=== PATIENT | male | born 1960 | race Caucasian/White ===

== ENCOUNTER → 2016-06-28 | Outpatient (CLI) | payer OTHER | LOC: HEART CORB 06-26 09:28 | DX: I25.5 Ischemic cardiomyopathy (principal); I42.0 Dilated cardiomyopathy ==

== ENCOUNTER 2020-09-26 12:13 | Observation (INO) | payer OTHER ==
[~2020-09-26] VITALS: Ht 182.9 cm; Wt 58.5 kg
[~2020-09-26 12:13] MED LIST: ASPIRIN EC81 MG PO; COREG 3.125M3.125 MG PO; HUMALOG100 UNIT/3 SQ; LANTUS SOL100 UNIT/1 SC; LANTUS100 UNIT/1 SC; LIPITOR TAB 2020 MG PO; METFORMIN HCL1000 MG PO; NEURONTIN 400400 MG PO; PERCOCET 5/325 T1 EA PO; PLAVIX 75 MG TA75 MG PO; PROTONIX40 MG PO; SPIRONOLACTONE25 MG PO; VASOTEC2.5 MG PO
[2020-09-26] MEDS ORDERED: LASIX20 MG PO (16:18)
[2020-09-26] MEDS ORDERED: GLUCOTROL5 MG PO (16:18)
[2020-09-26] MEDS ORDERED: PLAVIX75 MG PO (16:19)
[2020-09-26] MEDS ORDERED: VENTOLIN HFA 66.7 GM INH (16:19)
[2020-09-26] MEDS ORDERED: COZAAR 50MG TAB50 MG PO (16:19)
[2020-09-26] MEDS ORDERED: LINZESS145 MCG PO (16:20)
[2020-09-26] MEDS ORDERED: PROTONIX40 MG PO (16:20)
[2020-09-26] MEDS ORDERED: VITAMIN D21250 MCG PO (16:20)
[2020-09-26] MEDS ORDERED: LOPRESSOR50 MG PO (16:21)
[2020-09-26] MEDS ORDERED: NICOTINE PATCH1 EAC5 TOP (16:24)
[2020-09-26 16:44] LABS: HEMOGLOBIN 11.4 gm/dl (14.0-17.5); RED BLOOD COUNT 4.33 M/UL (4.20-5.50); WHITE BLOOD COUNT 19.2 K/UL (4.5-11.0)
[2020-09-26 17:06] LABS: BUN/CREATININE RATIO 28 (0-10)
[2020-09-27 04:07] LABS: HEMOGLOBIN 12.4 gm/dl (14.0-17.5); RED BLOOD COUNT 4.27 M/UL (4.20-5.50); WHITE BLOOD COUNT 14.6 K/UL (4.5-11.0)
[2020-09-27 04:36] LABS: BUN/CREATININE RATIO 25 (0-10)
[2020-09-27] MEDS ORDERED: LANTUS SOL100 UNIT/1 SQ (10:03)
[2020-09-27 13:11] LABS: HEMOGLOBIN 12.3 gm/dl (14.0-17.5)
--- NOTE | 2020-09-27 18:07 | NUR ---
CRESCENCIO RN ON MED SURG GIVEN REPORT ON PT
[2020-09-28 08:26] LABS: HEMOGLOBIN 11.9 gm/dl (14.0-17.5); RED BLOOD COUNT 4.17 M/UL (4.20-5.50); WHITE BLOOD COUNT 12.4 K/UL (4.5-11.0)
[2020-09-28 08:55] LABS: BUN/CREATININE RATIO 26 (0-10)
[2020-09-28] MEDS ORDERED: CLINDAMYCIN HC150 MG PO (09:29)
[2020-09-28] MEDS ORDERED: TOPROL XL100 MG PO (13:03)
== END 2020-09-28 15:33 | disposition home or self-care (01) ==
LOC: PROG CARE 14:11 → M/S 14:11 → PROG CARE 14:11 → M/S 09-27 19:57
PROVIDERS: Internal Medicine; Internal Medicine Gastroenterology; Physician Assistant; ADMIT Hospitalist
PROC: 0DB78ZX Excision of Stomach, Pylorus, Via Natural or Artificial Opening Endoscopic, Diagnostic (ICD-10-PCS; 2020-09-27)
PROC: 0DB68ZX Excision of Stomach, Via Natural or Artificial Opening Endoscopic, Diagnostic (ICD-10-PCS; principal; 2020-09-27 07:30)
DX: K21.01 Gastro-esophageal reflux disease with esophagitis, with bleeding (principal); K22.11 Ulcer of esophagus with bleeding; K44.9 Diaphragmatic hernia without obstruction or gangrene; K31.9 Disease of stomach and duodenum, unspecified; D62 Acute posthemorrhagic anemia; J44.9 Chronic obstructive pulmonary disease, unspecified; D72.829 Elevated white blood cell count, unspecified; I25.10 Atherosclerotic heart disease of native coronary artery without angina pectoris; E78.5 Hyperlipidemia, unspecified; I11.0 Hypertensive heart disease with heart failure; I50.9 Heart failure, unspecified; I25.5 Ischemic cardiomyopathy; E11.65 Type 2 diabetes mellitus with hyperglycemia; E11.51 Type 2 diabetes mellitus with diabetic peripheral angiopathy without gangrene; F17.210 Nicotine dependence, cigarettes, uncomplicated; I42.8 Other cardiomyopathies; Z20.822 Contact with and (suspected) exposure to COVID-19; Z79.82 Long term (current) use of aspirin; Z79.4 Long term (current) use of insulin; Z79.02 Long term (current) use of antithrombotics/antiplatelets; Z79.899 Other long term (current) drug therapy; Z95.5 Presence of coronary angioplasty implant and graft; Z89.431 Acquired absence of right foot; Z95.810 Presence of automatic (implantable) cardiac defibrillator
CPT/HCPCS: ECHO; 36415; 71045; 80048; 80053; 82550; 82553; 82962; 83036; 84484; 85014; 85018; 85025; 85027; 85610; 86850; 86900; 86901; 92610; 93005; 93306; C9113; G0378; G0379; J2001; J2704; J7040; U0002

== ENCOUNTER 2021-02-23 22:56 | Inpatient (IN) | payer OTHER ==
[~2021-02-23] VITALS: Ht 182.9 cm; Wt 89.4 kg
[~2021-02-23 22:56] MED LIST changes: +CLINDAMYCIN HC150 MG PO; +COZAAR 50MG TAB50 MG PO; +GLUCOTROL5 MG PO; +LASIX20 MG PO; +LINZESS145 MCG PO; +LOPRESSOR50 MG PO; +NICOTINE PATCH1 EAC5 TOP; +PLAVIX75 MG PO; +TOPROL XL100 MG PO; +VITAMIN D21250 MCG PO
[2021-02-24] MEDS ORDERED: HYDROCODON-ACE1 EAC6 PO (01:25)
[2021-02-24] MEDS ORDERED: GABAPENTIN800 MG PO (01:32)
[2021-02-24 03:08] LABS: HEMOGLOBIN 9.1 gm/dl (14.0-17.5); RED BLOOD COUNT 3.13 M/UL (4.20-5.50); WHITE BLOOD COUNT 11.1 K/UL (4.5-11.0)
[2021-02-24] MEDS ORDERED: LANTUS SOL100 UNIT/1 SQ (10:03)
[2021-02-24] MEDS ORDERED: DOXYCYCLINE HY100 MG PO (11:21)
[2021-02-24] MEDS ORDERED: FENOFIBRATE145 MG PO (11:22)
[2021-02-24] MEDS ORDERED: LOPRESSOR 50 MG50 MG PO (11:35)
[2021-02-24] MEDS ORDERED: PROAIR DIGIHAL90 MCG INH (16:19)
[2021-02-25 04:31] LABS: HEMOGLOBIN 8.4 gm/dl (14.0-17.5); RED BLOOD COUNT 2.84 M/UL (4.20-5.50); WHITE BLOOD COUNT 10.5 K/UL (4.5-11.0)
--- NOTE | 2021-02-26 03:05 | NUR ---
PT NOTED TO HAVE BP OF 83/52 HR 86 RR 18 02 98%. ATTEMPTED TO CALL DR. GR WITH NO RESPONSE. PT AWAKENS TO TOUCH.
--- NOTE | 2021-02-26 03:33 | NUR ---
DR. HANNON AWARE OF PTS VITALS. STATES, TO JUST WATCH FOR NOW. LONG PT IS NON SYMPTOMATIC ITS OK.
[2021-02-27 05:59] LABS: HEMOGLOBIN 7.5 gm/dl (14.0-17.5); RED BLOOD COUNT 2.63 M/UL (4.20-5.50); WHITE BLOOD COUNT 10.8 K/UL (4.5-11.0)
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
--- NOTE | 2021-02-28 01:33 | NUR ---
PATIENT HAS BEEN YELLING FOR PEOPLE THAT ARE NOT HERE, WHEN REDIRECTED HE DOES NOT REORIENT AND CONTINUES TO TALK TO AND CALL PEOPLE BY NAME HE IS BECOMING SOMEWHAT AGGRESSIVE MD AWARE NEW ORDERS NOTED
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
[2021-02-28 04:48] LABS: HEMOGLOBIN 7.7 gm/dl (14.0-17.5); RED BLOOD COUNT 2.63 M/UL (4.20-5.50); WHITE BLOOD COUNT 10.3 K/UL (4.5-11.0)
[2021-03-01 15:29] LABS: HEMOGLOBIN 7.9 gm/dl (14.0-17.5); RED BLOOD COUNT 2.68 M/UL (4.20-5.50)
[2021-03-01 20:09] LABS: 25-HYDROXY, VITAMIN D-3 8.5 ng/mL (.)
[2021-03-02 03:27] LABS: HEMOGLOBIN 7.4 gm/dl (14.0-17.5); RED BLOOD COUNT 2.54 M/UL (4.20-5.50); WHITE BLOOD COUNT 10.5 K/UL (4.5-11.0)
[2021-03-03 10:41] LABS: HEMOGLOBIN 8.4 gm/dl (14.0-17.5); WHITE BLOOD COUNT 11.5 K/UL (4.5-11.0)
[2021-03-03 10:42] LABS: RED BLOOD COUNT 2.92 M/UL (4.20-5.50)
[2021-03-04 03:07] LABS: HEMOGLOBIN 7.9 gm/dl (14.0-17.5); RED BLOOD COUNT 2.77 M/UL (4.20-5.50); WHITE BLOOD COUNT 12.1 K/UL (4.5-11.0)
[2021-03-05 02:33] LABS: HEMOGLOBIN 8.7 gm/dl (14.0-17.5)
[2021-03-05 02:42] LABS: RED BLOOD COUNT 3.07 M/UL (4.20-5.50)
[2021-03-05 02:58] LABS: BUN/CREATININE RATIO 26 (0-10)
[2021-03-06 02:42] LABS: HEMOGLOBIN 8.1 gm/dl (14.0-17.5); RED BLOOD COUNT 2.84 M/UL (4.20-5.50); WHITE BLOOD COUNT 12.9 K/UL (4.5-11.0)
[2021-03-06 03:25] LABS: BUN/CREATININE RATIO 29 (0-10)
[2021-03-07 05:42] LABS: RED BLOOD COUNT 2.83 M/UL (4.20-5.50); WHITE BLOOD COUNT 14.6 K/UL (4.5-11.0)
[2021-03-07 05:59] LABS: BUN/CREATININE RATIO 30 (0-10)
[2021-03-08 03:43] LABS: BUN/CREATININE RATIO 30 (0-10)
[2021-03-08 09:15] LABS: HEMOGLOBIN 8.7 gm/dl (14.0-17.5); RED BLOOD COUNT 3.13 M/UL (4.20-5.50); WHITE BLOOD COUNT 14.2 K/UL (4.5-11.0)
--- NOTE | 2021-03-08 12:17 | NUR ---
PATIENT IS SET UP FOR DISCHARGE TO [facility] IN [facility]. MD SELF AWAITING XRAY AND BLOOD TESTS RESULTS BEFORE DISCHARGE
[2021-03-09 03:17] LABS: HEMOGLOBIN 8.7 gm/dl (14.0-17.5); RED BLOOD COUNT 3.08 M/UL (4.20-5.50); WHITE BLOOD COUNT 14.6 K/UL (4.5-11.0)
[2021-03-09 03:41] LABS: BUN/CREATININE RATIO 26 (0-10)
[2021-03-09] MEDS ORDERED: COZAAR 25MG TAB25 MG PO (10:35)
[2021-03-09] MEDS ORDERED: NICOTINE PATCH1 EAC2 TOP (10:35)
[2021-03-09] MEDS ORDERED: GABAPENTIN300 MG PO (10:35)
[2021-03-09] MEDS ORDERED: HYDROCODON-ACE1 EAC4 PO (10:35)
[2021-03-09] MEDS ORDERED: DIGOXIN125 MCG PO (10:35)
[2021-03-09] MEDS ORDERED: LOPRESSOR 25 MG25 MG PO (10:35)
[2021-03-09] MEDS ORDERED: MIRALAX17 GM PO (10:36)
[2021-03-09] MEDS ORDERED: HUMALOG 10100 UNITS/ SC (10:36)
[2021-03-09] MEDS ORDERED: ERTAPENEM1 GM IV (10:36)
[2021-03-09] MEDS ORDERED: LANTUS INS100 UTS/M1 SQ (10:36)
[2021-03-09] MEDS ORDERED: FUROSEMIDE40 MG PO (10:36)
[2021-03-09] MEDS ORDERED: DOCUSATE SODIU100 MG PO (10:36)
[2021-03-10 03:59] LABS: HEMOGLOBIN 9.4 gm/dl (14.0-17.5); RED BLOOD COUNT 3.3 M/UL (4.20-5.50)
[2021-03-10 04:21] LABS: BUN/CREATININE RATIO 25 (0-10)
[2021-03-10] MEDS ORDERED: FERROUS SULFAT325 M2 PO (08:41)
[2021-03-10] MEDS ORDERED: GABAPENTIN300 MG PO (10:41)
== END 2021-03-10 15:30 | DRG 280 ==
LOC: PROG CARE 22:56 → CDU 02-24 11:36 → PROG CARE 02-25 23:20
PROVIDERS: Internal Medicine; Internal Medicine Cardiovascular Disease; ADMIT Internal Medicine
DX: I13.0 Hypertensive heart and chronic kidney disease with heart failure and stage 1 through stage 4 chronic kidney disease, or unspecified chronic kidney disease (principal); I21.A1 Myocardial infarction type 2; I50.23 Acute on chronic systolic (congestive) heart failure; E43 Unspecified severe protein-calorie malnutrition; J18.9 Pneumonia, unspecified organism; G93.41 Metabolic encephalopathy; Z20.822 Contact with and (suspected) exposure to COVID-19; J96.01 Acute respiratory failure with hypoxia; R64 Cachexia; J44.0 Chronic obstructive pulmonary disease with (acute) lower respiratory infection; E87.1 Hypo-osmolality and hyponatremia; N17.9 Acute kidney failure, unspecified; N18.30 Chronic kidney disease, stage 3 unspecified; F17.210 Nicotine dependence, cigarettes, uncomplicated; E11.621 Type 2 diabetes mellitus with foot ulcer; E83.42 Hypomagnesemia; E87.6 Hypokalemia; D50.9 Iron deficiency anemia, unspecified; E11.22 Type 2 diabetes mellitus with diabetic chronic kidney disease; I25.10 Atherosclerotic heart disease of native coronary artery without angina pectoris; L97.519 Non-pressure chronic ulcer of other part of right foot with unspecified severity; E11.40 Type 2 diabetes mellitus with diabetic neuropathy, unspecified; K29.50 Unspecified chronic gastritis without bleeding; L89.812 Pressure ulcer of head, stage 2; D63.1 Anemia in chronic kidney disease; E78.5 Hyperlipidemia, unspecified; Z95.1 Presence of aortocoronary bypass graft; Z89.431 Acquired absence of right foot; Z79.82 Long term (current) use of aspirin; Z79.899 Other long term (current) drug therapy; Z79.52 Long term (current) use of systemic steroids; I69.321 Dysphasia following cerebral infarction; Z68.22 Body mass index [BMI] 22.0-22.9, adult
CPT/HCPCS: ECHO; 36415; 36600; 70450; 71045; 71046; 74230; 78452; 80048; 80053; 80061; 80162; 80202; 81001; 82306; 82550; 82553; 82607; 82728; 82746; 82803; 82962; 83036; 83540; 83550; 83605; 83735; 83880; 84100; 84132; 84439; 84443; 84484; 84550; 85025; 85027; 85045; 85610; 85730; 86140; 87040; 87081; 92526; 92610; 92611-GN; 93005; 93017; 93306; 93880; 93925; 94640; 94664; 94760; 97110-GP-CQ; 97162; 97530; 97530-GP-CQ; A9502; C9113; G0480; J0692; J1160; J1644; J1756; J1940; J2185; J2785; J3370; J3475; J3486; J7030; J7050

== ENCOUNTER 2021-03-31 17:48 | Inpatient (IN) | payer OTHER ==
[~2021-03-31] VITALS: Ht 182.9 cm; Wt 88.9 kg
[~2021-03-31 17:48] MED LIST changes: +COZAAR 25MG TAB25 MG PO; +DIGOXIN125 MCG PO; +DOCUSATE SODIU100 MG PO; +DOXYCYCLINE HY100 MG PO; +ERTAPENEM1 GM IV; +FENOFIBRATE145 MG PO; +FERROUS SULFAT325 M2 PO; +FUROSEMIDE40 MG PO; +GABAPENTIN300 MG PO; +GABAPENTIN800 MG PO; +HUMALOG 10100 UNITS/ SC; +HYDROCODON-ACE1 EAC4 PO; +HYDROCODON-ACE1 EAC6 PO; +LANTUS INS100 UTS/M1 SQ; +LANTUS SOL100 UNIT/1 SQ; -LIPITOR TAB 2020 MG PO; +LIPITOR40 MG PO; +LOPRESSOR 25 MG25 MG PO; +LOPRESSOR 50 MG50 MG PO; +MIRALAX17 GM PO; +NICOTINE PATCH1 EAC2 TOP; +PROAIR DIGIHAL90 MCG INH
[2021-03-31 18:58] LABS: HEMOGLOBIN 12.2 gm/dl (14.0-17.5); RED BLOOD COUNT 4.58 M/UL (4.20-5.50)
[2021-04-01 04:54] LABS: WHITE BLOOD COUNT 13.8 K/UL (4.5-11.0)
[2021-04-01 05:08] LABS: RED BLOOD COUNT 3.82 M/UL (4.20-5.50)
[2021-04-01] MEDS ORDERED: HYDROCODON-ACE1 EAC4 PO (10:19)
[2021-04-01] MEDS ORDERED: LANTUS100 UNIT/1 SQ (10:20)
[2021-04-01] MEDS ORDERED: COZAAR 25MG TAB25 MG PO (10:21)
[2021-04-03 06:54] LABS: HEMOGLOBIN 9.6 gm/dl (14.0-17.5); RED BLOOD COUNT 3.66 M/UL (4.20-5.50); WHITE BLOOD COUNT 13.8 K/UL (4.5-11.0)
[2021-04-04 09:32] LABS: HEMOGLOBIN 9.6 gm/dl (14.0-17.5); RED BLOOD COUNT 3.7 M/UL (4.20-5.50)
--- NOTE | 2021-04-04 18:43 | NUR ---
SPOKE MULTIPLE TIMES WITH PT AND PODonnie - ANDREI - RE: SURGERY. PT ATE SOME BREAKFAST THIS AM AND SURGERY WAS PUT OFF UNTIL THIS EVENING. SPOKE WITH DR PICKETT AND DR MOBLEY. DR MOBLEY STATES IT WILL BE TAKING HIM BACK AFTER 1830. PT AND FAMILY AWARE. PT VERY UPSET AND DEMANDING TO EAT.
[2021-04-05 07:51] LABS: HEMOGLOBIN 10.1 gm/dl (14.0-17.5); RED BLOOD COUNT 4.04 M/UL (4.20-5.50); WHITE BLOOD COUNT 11.7 K/UL (4.5-11.0)
[2021-04-05 08:46] LABS: BUN/CREATININE RATIO 26 (0-10)
[2021-04-06 06:27] LABS: HEMOGLOBIN 9.2 gm/dl (14.0-17.5)
[2021-04-06 06:35] LABS: RED BLOOD COUNT 3.55 M/UL (4.20-5.50); WHITE BLOOD COUNT 17.6 K/UL (4.5-11.0)
--- NOTE | 2021-04-06 14:42 | NUR ---
CHANGED PT POST OP DRESSING ON RIGHT LEG. OLD BANDAGE HAD MODERATE AMOUNT OF BLOOD. DR JESSICA WAS AT BEDSIDE TO ASSESS WOUND DURING THE DRESSING CHANGE. COVERED LEG BACK WITH 4X4, KERLEX AND MERON. PT TOLERATED WELL STATING THAT HE "FELT NOTHING". TISSUE APPEARED HEALTHY AND PINK WITH NO SIGNS OF INFECTION. WCTM .
--- NOTE | 2021-04-06 15:43 | NUR ---
CALLED PT FALGUNI HATCH TO INFORM HIM OF SCHEDULED PROCEDURE TOMORROW PER DR MOBLEY. I EXPLAINED THE SURGERY AND UPDATED ON PT CONDITION. ATTEMPTED TO OBTAIN TELEPHONE CONSENT FOR PT SURGERY BUT FALGUNI STATED THAT HE WOULD COME TO THE HOSPITAL IN THE MORNING TO LOOK IT OVER IN PERSON AND DID NOT WANT TO GIVE TELEPHONE CONSENT. HE THANKED ME FOR CALLING. I ASSURED HIM THAT I WOULD CALL WITH ANYMORE UPDATES.
[2021-04-07 06:00] LABS: HEMOGLOBIN 9.3 gm/dl (14.0-17.5); RED BLOOD COUNT 3.62 M/UL (4.20-5.50)
[2021-04-07 06:01] LABS: WHITE BLOOD COUNT 11.5 K/UL (4.5-11.0)
[2021-04-08 06:58] LABS: HEMOGLOBIN 8.8 gm/dl (14.0-17.5); RED BLOOD COUNT 3.48 M/UL (4.20-5.50)
[2021-04-08 06:59] LABS: WHITE BLOOD COUNT 20.9 K/UL (4.5-11.0)
[2021-04-08 07:01] LABS: BUN/CREATININE RATIO 28 (0-10)
[2021-04-09 06:57] LABS: HEMOGLOBIN 9.7 gm/dl (14.0-17.5); RED BLOOD COUNT 3.77 M/UL (4.20-5.50); WHITE BLOOD COUNT 17.6 K/UL (4.5-11.0)
[2021-04-09 07:16] LABS: BUN/CREATININE RATIO 24 (0-10)
[2021-04-10 07:33] LABS: RED BLOOD COUNT 3.57 M/UL (4.20-5.50); WHITE BLOOD COUNT 15.5 K/UL (4.5-11.0)
[2021-04-10 07:42] LABS: BUN/CREATININE RATIO 26 (0-10)
[2021-04-11 07:14] LABS: HEMOGLOBIN 8.9 gm/dl (14.0-17.5); RED BLOOD COUNT 3.49 M/UL (4.20-5.50); WHITE BLOOD COUNT 19.2 K/UL (4.5-11.0)
[2021-04-11] MEDS ORDERED: GABAPENTIN300 MG PO (09:58)
[2021-04-11] MEDS ORDERED: HYDROCODON-ACE1 EAC4 PO (09:58)
[2021-04-11] MEDS ORDERED: ENOXAPARIN40 MG/0.4 SC (09:58)
[2021-04-11] MEDS ORDERED: LOPRESSOR 25 MG25 MG PO (09:58)
[2021-04-11] MEDS ORDERED: FUROSEMIDE40 MG PO (09:58)
[2021-04-12 06:59] LABS: HEMOGLOBIN 9.5 gm/dl (14.0-17.5); RED BLOOD COUNT 3.61 M/UL (4.20-5.50)
[2021-04-12 07:22] LABS: BUN/CREATININE RATIO 35 (0-10)
[2021-04-12] MEDS ORDERED: LEVOFLOXACIN500 MG PO (10:20)
[2021-04-12] MEDS ORDERED: DOXYCYCLINE HY100 M2 PO (10:20)
== END 2021-04-12 23:00 | DRG 239 ==
LOC: ER1 17:48 → MED SURG 4 21:36 → CDU 21:36 → MED SURG 4 04-01 15:53
PROVIDERS: Internal Medicine; Physician Assistant Medical; Surgery; ADMIT Internal Medicine Infectious Disease
PROC: 0Y6M0Z0 Detachment at Right Foot, Complete, Open Approach (ICD-10-PCS; 2021-04-05)
PROC: 0Y6H0Z3 Detachment at Right Lower Leg, Low, Open Approach (ICD-10-PCS; principal; 2021-04-07 10:15)
DX: E11.52 Type 2 diabetes mellitus with diabetic peripheral angiopathy with gangrene (principal); A48.0 Gas gangrene; I21.A1 Myocardial infarction type 2; Z20.822 Contact with and (suspected) exposure to COVID-19; N17.9 Acute kidney failure, unspecified; I13.0 Hypertensive heart and chronic kidney disease with heart failure and stage 1 through stage 4 chronic kidney disease, or unspecified chronic kidney disease; E44.0 Moderate protein-calorie malnutrition; I50.42 Chronic combined systolic (congestive) and diastolic (congestive) heart failure; L03.115 Cellulitis of right lower limb; M86.8X7 Other osteomyelitis, ankle and foot; Z68.1 Body mass index [BMI] 19.9 or less, adult; N18.30 Chronic kidney disease, stage 3 unspecified; J44.9 Chronic obstructive pulmonary disease, unspecified; D63.1 Anemia in chronic kidney disease; F17.210 Nicotine dependence, cigarettes, uncomplicated; E11.22 Type 2 diabetes mellitus with diabetic chronic kidney disease; I25.5 Ischemic cardiomyopathy; I27.20 Pulmonary hypertension, unspecified; D75.838 Other thrombocytosis; D72.829 Elevated white blood cell count, unspecified; E11.65 Type 2 diabetes mellitus with hyperglycemia; E11.69 Type 2 diabetes mellitus with other specified complication; R53.81 Other malaise; I08.1 Rheumatic disorders of both mitral and tricuspid valves; G89.29 Other chronic pain; E87.70 Fluid overload, unspecified; L89.151 Pressure ulcer of sacral region, stage 1; Z79.01 Long term (current) use of anticoagulants; Z79.82 Long term (current) use of aspirin; Z79.4 Long term (current) use of insulin; Z95.5 Presence of coronary angioplasty implant and graft; Z82.49 Family history of ischemic heart disease and other diseases of the circulatory system; Z83.3 Family history of diabetes mellitus; Z89.431 Acquired absence of right foot; Z95.0 Presence of cardiac pacemaker; I25.2 Old myocardial infarction
CPT/HCPCS: 36415; 71045; 73630; 80048; 80053; 82962; 83036; 83605; 83735; 85025; 85652; 86140; 87040; 93005; 97110-GP-CQ; 97161; 97530; 97530-GP-CQ; 97760; 99284; G0378; J0171; J1100; J1335; J1650; J2001; J2270; J2543; J2704; J2795; J3370; J7030; J7070; J7120; P9047; U0002